=== PATIENT | male | born 1950 | race Caucasian/White ===

== ENCOUNTER 2017-09-30 14:41 | Inpatient (IN) | payer OTHER ==
[2017-09-30 19:38] VITALS: BMI 24.3
--- NOTE | 2017-09-30 21:21 | HP ---
COWS - Scale Resting Pulse: 0= [place] 80 or Below Sweatin=Flushed/Facial Moisture Restless Observation: 1= Difficult to Sit Still Pupil Size: 1= Pupils >than Normal Bone or Joint Aches: 4=Acute Joint/Muscle Pain Runny Nose/ Eye Tearin= Nasal Congestion GI Upset > 30mins: 3= Vomiting/Diarrhea Tremor Observation: 4= Gross Tremor/Twitching Yawning Observation: 0= None Anxiety or Irritability: 2=Irritable/Anxious Goose Flesh Skin: 0=Smooth Skin COWS Score: 18 Admission ROS S - HPI Chief Complaint: C/O WITHDRAWAL SX'S. SEEKING DETOX TXMENT Allergies/Adverse Reactions: Allergies Allergy/AdvReac Type Severity Reaction Status Date / Time No Known Allergies Allergy Verified 09/30/17 20:22 History of Present Illness: 66 Y.O. MALE WITH LONG HX/O OPIOID DEPENDENCE SEEKING DETOX. CLIENT WAS REFERRED BY AFTER HOURS HARM REDUCTION PROGRAM. THIS IS HIS FIRST TIME IN DETOX. REPORTS LONGEST CLEAN TIME 5 YEARS RELPASING 5 YEARS AGO. Exam Limitations: No Limitations - Ebola screening Have you traveled outside of the country in the last 21 days: No (N) Have you had contact with anyone from an Ebola affected area: No Have you been sick,other than usual withdrawal symptoms: No Do you have a fever: No - Review of Systems Constitutional: Chills, Loss of Appetite, Malaise, Night Sweats, Changes in sleep, Unintentional Wgt. Loss EENT: reports: Nose Congestion, Other (GLASSES DENTURES) Respiratory: reports: No Symptoms reported Cardiac: reports: No Symptoms Reported GI: reports: Nausea, Poor Appetite, Poor Fluid Intake, Vomiting, Abdominal cramping : reports: Dysuria Musculoskeletal: reports: Joint Pain Integumentary: reports: No Symptoms Reported Neuro: reports: No Symptoms reported Endocrine: reports: No Symptoms Reported Hematology: reports: No Symptoms Reported Psychiatric: reports: Anxious, Depressed Other Systems: Reviewed and Negative Patient History - Patient Medical History Hx Anemia: No Hx Asthma: No Hx Chronic Obstructive Pulmonary Disease (COPD): No Hx Cancer: No Hx Cardiac Disorders: No Hx Congestive Heart Failure: No Hx Hypertension: No Hx Hypercholesterolemia: No Hx Pacemaker: No HX Cerebrovascular Accident: No Hx Seizures: No Hx Dementia: No Hx Diabetes: No Hx Gastrointestinal Disorders: No Hx Liver Disease: No Hx Genitourinary Disorders: No Hx Sexually Transmitted Disorders: No Hx Renal Disease (ESRD): No Hx Thyroid Disease: No Hx Human Immunodeficiency Virus (HIV): No Hx Hepatitis C: No Hx Depression: Yes Hx Suicide Attempt: No Hx Bipolar Disorder: No Hx Schizophrenia: No Other Medical History: ANXIETY - Patient Surgical History Past Surgical History: No Hx Neurologic Surgery: No Hx Cataract Extraction: No Hx Cardiac Surgery: No Hx Lung Surgery: No Hx Breast Surgery: No Hx Breast Biopsy: No Hx Abdominal Surgery: No Hx Appendectomy: No Hx Cholecystectomy: No Hx Genitourinary Surgery: No Hx Section: No Hx Orthopedic Surgery: No Anesthesia Reaction: No - PPD History Previous Implant?: Yes Documented Results: Negative w/o proof Implanted On Prior [facility] Admission?: No PPD to be Administered?: Yes - Smoking Cessation Smoking history: Current every day smoker Have you smoked in the past 12 months: Yes Aproximately how many cigarettes per day: 5 Cigars Per Day: 0 Hx Chewing Tobacco Use: No Initiated information on smoking cessation: Yes 'Breaking Loose' booklet given: 09/30/17 - Substance & Tx. History Hx Alcohol Use: No Hx Substance Use: Yes Substance Use Type: Heroin Hx Substance Use Treatment: No - Substances Abused Heroin Route: Inhalation Frequency: Daily Amount used: 8 BAGS Age of first use: 31 Date of Last Use: 09/29/17 Family Disease History - Family Disease History Family History: Denies Admission Physical Exam [facility] - Vital Signs Vital Signs: Vital Signs - 24 hr 09/30/17 19:36 Temperature 98.3 F Pulse Rate 65 Respiratory 19 Rate Blood Pressure 131/52 - Physical General Appearance: Yes: Appropriately Dressed, Mild Distress, Tremorous, Anxious HEENTM: Yes: EOMI, Normocephalic, Normal Voice, ARNOL, Pharynx Normal, Nasal Congestion, Other (MISSING TEETH GLASSES) Respiratory: Yes: Chest Non-Tender, Lungs Clear, Normal Breath Sounds, No Respiratory Distress, No Accessory Muscle Use Neck: Yes: No masses,lesions,Nodules, Supple, Trachea in good position Breast: Yes: Breast Exam Deferred Cardiology: Yes: Regular Rhythm, Regular Rate, S1, S2 Abdominal: Yes: Normal Bowel Sounds, Non Tender, Flat, Soft Genitourinary: Yes: Burning (C/O) Back: Yes: Normal Inspection Musculoskeletal: Yes: full range of Motion, Gait Steady Extremities: Yes: Normal Range of Motion, Non-Tender, Tremors Neurological: Yes: metal mixer II-XII NML intact, Fully Oriented, Alert, Motor Strength 5/5 Integumentary: Yes: Normal Color, Dry, Warm Lymphatic: Yes: Within Normal Limits - Diagnostic (1) Opioid dependence with withdrawal Current Visit: Yes Status: Chronic (2) Nicotine dependence Current Visit: Yes Status: Chronic Qualifiers: Nicotine product type: cigarettes Substance use status: uncomplicated Qualified Code(s): F17.210 - Nicotine dependence, cigarettes, uncomplicated Cleared for Admission [facility] - Detox or Rehab [facility] Level of Care: Medically Managed Detox Regimen/Protocol: Methadone Claeared for Rehab Admission: No [facility] Breath Alcohol Content Breath Alcohol Content: 0 Urine Drug Screen - Results Drug Screen Negative: No Urine Drug Screen Results: OPI-Opiates
[2017-09-30] MEDS ORDERED: MENTHOL/PHENOL 1 EACH UD MM PRN (21:29)
[2017-09-30] MEDS ORDERED: ACETAMINOPHEN 325 MG TABLET (FP) PO PRN (21:29)
[2017-09-30] MEDS ORDERED: P-EPHED 60MG/TRIPROLIDI 2.5MG TABLET PO PRN (21:29)
[2017-09-30] MEDS ORDERED: guaiFENesin/D-METHORPHAN HB 10 ML UNIT-DOSE CUPS PO PRN (21:29)
[2017-09-30] MEDS ORDERED: MAGNESIUM CITRATE 300 ML BOTTLE PO PRN (21:29)
[2017-09-30] MEDS ORDERED: MAGNESIUM HYDROX 2400MG/30ML ORAL SUSPENSION 30 ML CUP PO PRN (21:29)
[2017-09-30] MEDS ORDERED: IBUPROFEN 400 MG TABLET (FP) PO PRN (21:29)
[2017-09-30] MEDS ORDERED: LOPERAMIDE HCL 2 MG CAPSULE PO PRN (21:29)
[2017-09-30] MEDS ORDERED: hydrOXYzine PAMOATE 50 MG CAPSULE (FP) PO PRN (21:29)
[2017-09-30] MEDS ORDERED: diazePAM 5 MG TABLET PO PRN (21:29)
[2017-09-30] MEDS ORDERED: MAG HYDROX/AL HYDROX/SIMETH 30 ML UNIT-DOSE CUP PO PRN (21:29)
[2017-09-30] MEDS ORDERED: METHADONE HCL 10 MG TABLET (FOR DETOX USE ONLY) PO ONE ×2 (21:29→23:00)
[2017-09-30] MEDS ORDERED: NICOTINE POLACRILEX 2 MG GUM BC PRN (21:29)
[2017-09-30 23:51] LABS: URINE APPEARANCE CLEAR; URINE BILIRUBIN NEGATIVE (NEGATIVE); URINE BLOOD NEGATIVE (NEGATIVE); URINE COLOR YELLOW; URINE GLUCOSE (UA) NEGATIVE (NEGATIVE); URINE KETONE NEGATIVE (NEGATIVE); URINE LEUK ESTERASE NEGATIVE (NEGATIVE); URINE NITRITE NEGATIVE (NEGATIVE); URINE PROTEIN NEGATIVE (NEGATIVE)
[2017-10-01] MEDS ORDERED: METHADONE HCL 10 MG TABLET (FOR DETOX USE ONLY) PO ONE ×4 (00:41→23:00)
[2017-10-01] MEDS: diazePAM 5 MG TABLET PO PRN ×2 (01:10→22:18)
[2017-10-01] MEDS: THIAMINE HCL 100 MG TABLET (FP) PO SCH ×2 (01:16→22:17)
[2017-10-01 10:36] LABS: HEMATOCRIT 39.6 % (35.4-49); HEMOGLOBIN 13.3 GM/dL (11.7-16.9); MCH 30.9 pg (25.7-33.7); MCHC 33.6 g/dl (32.0-35.9); MEAN CELL VOLUME 92.2 fl (80-96); PLATELET COUNT 233 K/MM3 (134-434); RBC 4.29 M/mm3 (4.00-5.60); WHITE BLOOD COUNT 5.3 K/mm3 (4.0-10.0)
[2017-10-01] MEDS: PRENATAL VITAMINS W/ FOLIC ACID TABLET (FP) PO SCH (11:07)
[2017-10-01] MEDS: NICOTINE 14 MG/24 HOURS TOPICAL PATCH TD SCH (11:07)
[2017-10-01 11:20] LABS: ALBUMIN 3.3 g/dl (3.4-5.0); ALK PHOS 46 U/L (45-117); ANION GAP 6 (8-16); BILIRUBIN,TOTAL 0.4 mg/dL (0.2-1.0); BLOOD UREA NITROGEN 14 mg/dL (7-18); CALCIUM 8.1 mg/dL (8.5-10.1); CHLORIDE 106 mmol/L (98-107); CO2 28 mmol/L (21-32); CREATININE 0.6 mg/dL (0.7-1.3); GLUCOSE,RANDOM 87 mg/dL (74-106); POTASSIUM 4.1 mmol/L (3.5-5.1); SGOT/AST 23 U/L (15-37); SGPT/ALT 30 U/L (12-78); SODIUM 140 mmol/L (136-145)
--- NOTE | 2017-10-01 16:03 | CONSULT ---
[facility] Psychiatric Consult - Data Date of interview: 10/01/17 Admission source: [facility] Identifying data: First admission to [facility] for this 66 y/o [place] male seeking detox treatment on for heroin dependence.Patient is ,a father of two,domiciled,unemployed and supported on Social Security benefits. Substance Abuse History: Discussed with patient in this interview.Mr Jara endorses daily use of heroin via snorting (more than 30 years of abuse).Details in current [facility] report : Smoking history: Current every day smoker. Have you smoked in the past 12 months: Yes. Aproximately how many cigarettes per day: 5. Cigars Per Day: 0. Hx Chewing Tobacco Use: No. Initiated information on smoking cessation: Yes. 'Breaking Loose' booklet given: 09/30/17. - Substance & Tx. History. Hx Alcohol Use: No. Hx Substance Use: Yes. Substance Use Type : Heroin. Hx Substance Use Treatment: No. - Substances Abused. Heroin. Route: Inhalation. Frequency: Daily. Amount used: 8 BAGS. Age of first use: 31. Date of Last Use: 09/29/17 Medical History: GERD.Patient reports good general health. Psychiatric History: Patient admits to one psychiatric hospitalization at [facility] " a couple of years ago ". Diagnosed with MDD and Anxiety Disorder.Prescribed paxil 10 mg/day + trazodone 50 mg/hs + seroquel 100 mg/hs.Last taken on 09/29/17 according to self-report.Mr Jara sees a psychiatrist Physical/Sexual Abuse/Trauma History: Patient denies. Additional Comment: Urine Drug Screen Results: OPI-Opiates.Noted. Mental Status Exam - Mental Status Exam Alert and Oriented to: Time, Place, Person Cognitive Function: Good Patient Appearance: Well Groomed Mood: Nervous (dysphoric), Withdrawn Affect: Mood Congruent, Constricted Patient Behavior: Appropriate, Cooperative Speech Pattern: Clear, Appropriate Voice Loudness: Normal Thought Process: Intact, Goal Oriented Thought Disorder: Not Present Hallucinations: Denies Suicidal Ideation: Denies Homicidal Ideation: Denies Insight/Judgement: Poor Sleep: Poorly, Difficulty falling asleep Appetite: Good Muscle strength/Tone: Normal Gait/Station: Normal Psychiatric Findings - Problem List ([place] 1, 2,3) (1) Opioid dependence with withdrawal Current Visit: Yes Status: Acute (2) Nicotine dependence Current Visit: Yes Status: Acute Qualifiers: Nicotine product type: cigarettes Substance use status: uncomplicated Qualified Code(s): F17.210 - Nicotine dependence, cigarettes, uncomplicated (3) Substance induced mood disorder Current Visit: Yes Status: Acute (4) MDD (major depressive disorder) Current Visit: Yes Status: Chronic Comment: As per self-report.On medications.Currently involved in active OPD care. (5) Insomnia Current Visit: Yes Status: Acute - Initial Treatment Plan Initial Treatment Plan: Psychoeducation and support.Sleep hygiene.Detoxification in progress.Medications reconciled : seroquel 100 mg po hs + paxil 10 mg po daily + trazodone 50 mg po hs.Side effecst/benefits of each drug are discussed with the patient.Made aware of risk of suicidal ideation, sexual dysfunction,abnormal involuntary movements,cardiovascular adverse events, oversedation/falls,metabolic syndrome and priapism.Mr Jara endorses his medications as well tolerated and efficacious.Requests their inclusion in [facility] current regime of treatment.He agrees to follow this careplan.Observation.
--- NOTE | 2017-10-01 16:05 | CONSULT ---
[facility] Psychiatric Consult - Data Date of interview: 10/01/17 Admission source: [facility]
--- NOTE | 2017-10-01 20:35 | PN ---
[facility] COWS - Scale Resting Pulse: 0= [place] 80 or Below Sweatin=Flushed/Facial Moisture Restless Observation: 1= Difficult to Sit Still Pupil Size: 0= Normal to Room Light Bone or Joint Aches: 1= Mild Discomfort Runny Nose/ Eye Tearin= Nasal Congestion GI Upset > 30mins: 2= Nausea/Diarrhea Tremor Observation of Outstretched Hands: 2= Slight Tremor Visible Yawning Observation: 1= 1-2x During Session Anxiety or Irritability: 2=Irritable/Anxious Goose Flesh Skin: 0=Smooth Skin COWS Score: 12 [facility] Progress Note (SOAP) Subjective: sweats shakes diarrhea Objective: 10/01/17 20:34 A & O x 3 Laboratory Last Values WBC 5.3 K/mm3 (4.0-10.0) 10/01/17 08:00 RBC 4.29 M/mm3 (4.00-5.60) 10/01/17 08:00 Hgb 13.3 GM/dL (11.7-16.9) 10/01/17 08:00 Hct 39.6 % (35.4-49) 10/01/17 08:00 MCV 92.2 fl (80-96) 10/01/17 08:00 MCH 30.9 pg (25.7-33.7) 10/01/17 08:00 MCHC 33.6 g/dl (32.0-35.9) 10/01/17 08:00 RDW 15.0 % (11.9-15.9) 10/01/17 08:00 Plt Count 233 K/MM3 (134-434) 10/01/17 08:00 MPV 10.0 fl (7.5-11.1) 10/01/17 08:00 Sodium 140 mmol/L (136-145) 10/01/17 08:00 Potassium 4.1 mmol/L (3.5-5.1) 10/01/17 08:00 Chloride 106 mmol/L (98-107) 10/01/17 08:00 Carbon Dioxide 28 mmol/L (21-32) 10/01/17 08:00 Anion Gap 6 (8-16) L 10/01/17 08:00 BUN 14 mg/dL (7-18) 10/01/17 08:00 Creatinine 0.6 mg/dL (0.7-1.3) L 10/01/17 08:00 Creat Clearance w eGFR > 60 (>60) 10/01/17 08:00 Random Glucose 87 mg/dL (74-106) 10/01/17 08:00 Calcium 8.1 mg/dL (8.5-10.1) L 10/01/17 08:00 Total Bilirubin 0.4 mg/dL (0.2-1.0) 10/01/17 08:00 AST 23 U/L (15-37) 10/01/17 08:00 ALT 30 U/L (12-78) 10/01/17 08:00 Alkaline Phosphatase 46 U/L (45-117) 10/01/17 08:00 Total Protein 6.0 g/dl (6.4-8.2) L 10/01/17 08:00 Albumin 3.3 g/dl (3.4-5.0) L 10/01/17 08:00 Urine Color Yellow 09/30/17 23:40 Urine Appearance Clear 09/30/17 23:40 Urine pH 6.0 (5.0-8.0) 09/30/17 23:40 Ur Specific [place] 1.024 (1.001-1.035) 09/30/17 23:40 Urine Protein Negative (NEGATIVE) 09/30/17 23:40 Urine Glucose (UA) Negative (NEGATIVE) 09/30/17 23:40 Urine Ketones Negative (NEGATIVE) 09/30/17 23:40 Urine Blood Negative (NEGATIVE) 09/30/17 23:40 Urine Nitrite Negative (NEGATIVE) 09/30/17 23:40 Urine Bilirubin Negative (NEGATIVE) 09/30/17 23:40 Urine Urobilinogen 2.0 mg/dL (0.2-1.0) 09/30/17 23:40 Ur Leukocyte Esterase Negative (NEGATIVE) 09/30/17 23:40 RPR Titer Nonreactive (NONREACTIVE) 10/01/17 08:00 Labs noted Assessment: 10/01/17 20:35 withdrawal sx Plan: continue detox
[2017-10-01] MEDS: traZODone HCL 50 MG TABLET (FP) PO SCH (22:18)
[2017-10-01] MEDS: QUEtiapine FUMARATE 50 MG TABLET PO SCH (22:18)
[2017-10-02] MEDS ORDERED: METHADONE HCL 5 MG TABLET (FOR DETOX USE ONLY) PO ONE (10:00)
[2017-10-02] MEDS ORDERED: METHADONE HCL 10 MG TABLET (FOR DETOX USE ONLY) PO ONE (10:00)
[2017-10-02] MEDS: PARoxetine HCL 10 MG TABLET (FP) PO SCH (11:16)
[2017-10-02] MEDS: PRENATAL VITAMINS W/ FOLIC ACID TABLET (FP) PO SCH (11:16)
[2017-10-02] MEDS: NICOTINE 14 MG/24 HOURS TOPICAL PATCH TD SCH (11:17)
--- NOTE | 2017-10-02 15:14 | PN ---
S COWS - Scale Resting Pulse: 0= [place] 80 or Below Sweatin= Chills/Flushing Restless Observation: 1= Difficult to Sit Still Pupil Size: 1= Pupils >than Normal Bone or Joint Aches: 2= Severe Diffuse Aches Runny Nose/ Eye Tearin= Nasal Congestion GI Upset > 30mins: 1= Stomach Cramp Tremor Observation of Outstretched Hands: 1= Tremor [place], Not Seen Yawning Observation: 2= >3x During Session Anxiety or Irritability: 1=Feels Anxious/Irritable Goose Flesh Skin: 0=Smooth Skin COWS Score: 11 S Progress Note (SOAP) Subjective: general body ache sweat sleeplessness tremor restlessness anxiety Objective: 10/02/17 15:13 Vital Signs Temperature 97.7 F 10/02/17 14:23 Pulse Rate 64 10/02/17 14:23 Respiratory Rate 18 10/02/17 14:23 Blood Pressure 138/69 10/02/17 14:23 O2 Sat by Pulse Oximetry (%) Laboratory Last Values WBC 5.3 K/mm3 (4.0-10.0) 10/01/17 08:00 RBC 4.29 M/mm3 (4.00-5.60) 10/01/17 08:00 Hgb 13.3 GM/dL (11.7-16.9) 10/01/17 08:00 Hct 39.6 % (35.4-49) 10/01/17 08:00 MCV 92.2 fl (80-96) 10/01/17 08:00 MCH 30.9 pg (25.7-33.7) 10/01/17 08:00 MCHC 33.6 g/dl (32.0-35.9) 10/01/17 08:00 RDW 15.0 % (11.9-15.9) 10/01/17 08:00 Plt Count 233 K/MM3 (134-434) 10/01/17 08:00 MPV 10.0 fl (7.5-11.1) 10/01/17 08:00 Sodium 140 mmol/L (136-145) 10/01/17 08:00 Potassium 4.1 mmol/L (3.5-5.1) 10/01/17 08:00 Chloride 106 mmol/L (98-107) 10/01/17 08:00 Carbon Dioxide 28 mmol/L (21-32) 10/01/17 08:00 Anion Gap 6 (8-16) L 10/01/17 08:00 BUN 14 mg/dL (7-18) 10/01/17 08:00 Creatinine 0.6 mg/dL (0.7-1.3) L 10/01/17 08:00 Creat Clearance w eGFR > 60 (>60) 10/01/17 08:00 Random Glucose 87 mg/dL (74-106) 10/01/17 08:00 Calcium 8.1 mg/dL (8.5-10.1) L 10/01/17 08:00 Total Bilirubin 0.4 mg/dL (0.2-1.0) 10/01/17 08:00 AST 23 U/L (15-37) 10/01/17 08:00 ALT 30 U/L (12-78) 10/01/17 08:00 Alkaline Phosphatase 46 U/L (45-117) 10/01/17 08:00 Total Protein 6.0 g/dl (6.4-8.2) L 10/01/17 08:00 Albumin 3.3 g/dl (3.4-5.0) L 10/01/17 08:00 Urine Color Yellow 09/30/17 23:40 Urine Appearance Clear 09/30/17 23:40 Urine pH 6.0 (5.0-8.0) 09/30/17 23:40 Ur Specific [place] 1.024 (1.001-1.035) 09/30/17 23:40 Urine Protein Negative (NEGATIVE) 09/30/17 23:40 Urine Glucose (UA) Negative (NEGATIVE) 09/30/17 23:40 Urine Ketones Negative (NEGATIVE) 09/30/17 23:40 Urine Blood Negative (NEGATIVE) 09/30/17 23:40 Urine Nitrite Negative (NEGATIVE) 09/30/17 23:40 Urine Bilirubin Negative (NEGATIVE) 09/30/17 23:40 Urine Urobilinogen 2.0 mg/dL (0.2-1.0) 09/30/17 23:40 Ur Leukocyte Esterase Negative (NEGATIVE) 09/30/17 23:40 RPR Titer Nonreactive (NONREACTIVE) 10/01/17 08:00 lab noted Assessment: 10/02/17 15:13 withdrawal sx Plan: continue detox
[2017-10-02] MEDS: diazePAM 5 MG TABLET PO PRN ×2 (18:07→21:50)
--- NOTE | 2017-10-02 20:37 | EKG ---
Test Reason : Blood Pressure : / mmHG Vent. Rate : 055 BPM Atrial Rate : 055 BPM P-R Int : 162 ms QRS Dur : 066 ms QT Int : 444 ms P-R-T Axes : 070 032 059 degrees QTc Int : 424 ms SINUS BRADYCARDIA OTHERWISE NORMAL ECG NO PREVIOUS ECGS AVAILABLE Confirmed by USAMA OGDEN MD ([id number]) on 10/02/2017 8:36:35 PM Referred By: Confirmed By:USAMA OGDEN MD
[2017-10-02] MEDS: QUEtiapine FUMARATE 50 MG TABLET PO SCH (21:50)
[2017-10-02] MEDS: THIAMINE HCL 100 MG TABLET (FP) PO SCH (21:50)
[2017-10-02] MEDS: traZODone HCL 50 MG TABLET (FP) PO SCH (21:50)
[2017-10-03] MEDS ORDERED: METHADONE HCL 5 MG TABLET (FOR DETOX USE ONLY) PO ONE ×2 (10:00)
[2017-10-03] MEDS: NICOTINE 14 MG/24 HOURS TOPICAL PATCH TD SCH (10:55)
[2017-10-03] MEDS: PRENATAL VITAMINS W/ FOLIC ACID TABLET (FP) PO SCH (10:55)
--- NOTE | 2017-10-03 12:11 | PN ---
[facility] Progress Note (SOAP) Subjective: ALERT,IRRITABLE,ANXIOUS,INTERRUPTED SLEEP,PAIN IN THE BODY Objective: 10/03/17 12:10 Vital Signs Temperature 96.3 F L 10/03/17 10:34 Pulse Rate 58 L 10/03/17 10:34 Respiratory Rate 16 10/03/17 10:34 Blood Pressure 127/74 10/03/17 10:34 O2 Sat by Pulse Oximetry (%) Assessment: 10/03/17 12:10 WITHDRAWAL SYMPTOM Plan: CONTINUE DETOX
[2017-10-03] MEDS: PARoxetine HCL 10 MG TABLET (FP) PO SCH (13:19)
[2017-10-03] MEDS: QUEtiapine FUMARATE 50 MG TABLET PO SCH (22:26)
[2017-10-03] MEDS: traZODone HCL 50 MG TABLET (FP) PO SCH (22:26)
[2017-10-03] MEDS: THIAMINE HCL 100 MG TABLET (FP) PO SCH (22:26)
[2017-10-04] MEDS ORDERED: METHADONE HCL 5 MG TABLET (FOR DETOX USE ONLY) PO ONE (10:00)
[2017-10-04] MEDS ORDERED: METHADONE HCL 10 MG TABLET (FOR DETOX USE ONLY) PO ONE (10:00)
[2017-10-04] MEDS: PRENATAL VITAMINS W/ FOLIC ACID TABLET (FP) PO SCH (10:07)
[2017-10-04] MEDS: PARoxetine HCL 10 MG TABLET (FP) PO SCH (10:07)
[2017-10-04] MEDS: NICOTINE 14 MG/24 HOURS TOPICAL PATCH TD SCH (10:08)
--- NOTE | 2017-10-04 11:46 | PN ---
S Progress Note (SOAP) Subjective: ALERT,IRRITABLE,ANXIOUS,INTERRUPTED SLEEP Objective: 10/04/17 11:45 Vital Signs Temperature 96.4 F L 10/04/17 10:03 Pulse Rate 64 10/04/17 10:03 Respiratory Rate 16 10/04/17 10:03 Blood Pressure 142/71 10/04/17 10:03 O2 Sat by Pulse Oximetry (%) Assessment: 10/04/17 11:45 WITHDRAWAL SYMPTOM Plan: CONTINUE DETOX,DISCHARGE IN AM
[2017-10-04] MEDS: THIAMINE HCL 100 MG TABLET (FP) PO SCH (22:12)
[2017-10-04] MEDS: traZODone HCL 50 MG TABLET (FP) PO SCH (22:13)
[2017-10-04] MEDS: QUEtiapine FUMARATE 50 MG TABLET PO SCH (22:13)
[2017-10-05] MEDS ORDERED: METHADONE HCL 5 MG TABLET (FOR DETOX USE ONLY) PO ONE (06:00)
[2017-10-05 06:18] VITALS: PULSE 63
--- NOTE | 2017-10-05 08:19 | PN ---
S Progress Note (SOAP) Subjective: ALERT,NO COMPLAINT Objective: 10/05/17 08:17 Vital Signs Temperature 90.0 F L 10/05/17 06:17 Pulse Rate 63 10/05/17 06:17 Respiratory Rate 18 10/05/17 06:30 Blood Pressure 114/57 10/05/17 06:17 O2 Sat by Pulse Oximetry (%) Assessment: 10/05/17 08:17 DETOX COMPLETED,NO WITHDRAWAL SYMPTOM Plan: DISCHARGE TODAY,FOLLOW UP WITH AFTER CARE PROGRAM ARRANGEMENT
--- NOTE | 2017-10-05 09:39 | DS ---
[facility] Detox Discharge Summary Admission Date: 09/30/17 Discharge Date: 10/05/17 - History Present History: Opioid Dependence Additional Comments: FOLLOW UP WITH AFTER CARE PROGRAM ARRANGEMENT Pertinent Past History: NICOTINE DEPENDENCE SUBSTANCE INDUCED MOOD DISORDER MAJOR DEPRESSIVE DISORDER - Physical Exam Results Vital Signs: Vital Signs Temperature 90.0 F L 10/05/17 06:17 Pulse Rate 63 10/05/17 06:17 Respiratory Rate 18 10/05/17 06:30 Blood Pressure 114/57 10/05/17 06:17 O2 Sat by Pulse Oximetry (%) Pertinent Admission Physical Exam Findings: WITHDRAWAL SIGNS AND SYMPTOM - Treatment Hospital Course: Detox Protocol Followed, Detoxed Safely, Responded well, Discharged Condition Good, Rehab Referral Accepted Patient has Accepted a Rehab Referral to: [facility] - Medication Discharge Medications: Ambulatory Orders Paroxetine HCl [Paxil -] 10 mg PO DAILY 09/30/17 Quetiapine Fumarate [Seroquel -] 100 mg PO HS 09/30/17 Trazodone HCl 50 mg PO HS 09/30/17 - Diagnosis (1) Opioid dependence with withdrawal Current Visit: Yes Status: Acute (2) Nicotine dependence Current Visit: Yes Status: Acute Qualifiers: Nicotine product type: cigarettes Substance use status: uncomplicated Qualified Code(s): F17.210 - Nicotine dependence, cigarettes, uncomplicated (3) Substance induced mood disorder Current Visit: Yes Status: Acute (4) MDD (major depressive disorder) Current Visit: Yes Status: Chronic - AMA Did Patient Leave Against Medical Advice: No
[2017-10-05] MEDS ORDERED: METHADONE HCL 10 MG TABLET (FOR DETOX USE ONLY) PO ONE (10:00)
[2017-10-05] MEDS: PARoxetine HCL 10 MG TABLET (FP) PO SCH (10:28)
[2017-10-05] MEDS: PRENATAL VITAMINS W/ FOLIC ACID TABLET (FP) PO SCH (10:28)
[2017-10-05] MEDS: NICOTINE 14 MG/24 HOURS TOPICAL PATCH TD SCH (10:29)
[2017-10-05 10:36] VITALS: BP 126/62; TEMP 98.1
--- NOTE | 2017-10-05 11:36 | PN ---
[facility] Progress Note Note: PATIENT IS GOING TO [facility] FOR REHAB
[2017-10-06] MEDS ORDERED: METHADONE HCL 5 MG TABLET (FOR DETOX USE ONLY) PO ONE (06:00)
== END 2017-10-05 11:40 | disposition home or self-care (01) | DRG 773 ==
LOC: YASAS 14:41 → Y6N 20:16
PROVIDERS: ADMIT Internal Medicine; ATTEND Internal Medicine
PROC: HZ2ZZZZ Detoxification Services for Substance Abuse Treatment (ICD-10-PCS; principal; 2017-09-30)
DX: F11.23 Opioid dependence with withdrawal (principal); F17.210 Nicotine dependence, cigarettes, uncomplicated; F19.24 Other psychoactive substance dependence with psychoactive substance-induced mood disorder; F33.9 Major depressive disorder, recurrent, unspecified; G47.00 Insomnia, unspecified
CPT/HCPCS: 36415; 80053; 81003; 85027; 86593; 93005; 93010